=== PATIENT | female | born 1995 | race African-American/Black ===

== ENCOUNTER 2024-12-26 23:12 | Emergency (ER) | payer MEDICAID ==
[~2024-12-26] VITALS: Ht 170.2 cm; Wt 102.0 kg
[2024-12-26 23:19] VITALS: BP 151/91; PULSE 102; RESP 18; TEMP 36.8; O2SAT 99
[2024-12-26] MEDS: ACETAMINOPHEN 325MG TABLET PO ONE (23:54)
[2024-12-26] MEDS: METOCLOPRAMIDE HCL 5MG TABLET PO ONE (23:54)
[2024-12-27 00:08] LABS: HCG SCREEN NEGATIVE
[2024-12-28] MEDS ORDERED: ONDA4TAB50 MT (16:39)
[2024-12-28] MEDS ORDERED: ACET-2708 MT (16:39)
[2024-12-28] MEDS ORDERED: NAPR-679 MT (16:39)
== END 2024-12-27 01:16 | disposition left against medical advice (07) ==
LOC: ER 23:12
DX: S09.90XA Unspecified injury of head, initial encounter (principal); R03.0 Elevated blood-pressure reading, without diagnosis of hypertension; R51.9 Headache, unspecified; W01.0XXA Fall on same level from slipping, tripping and stumbling without subsequent striking against object, initial encounter; Y93.89 Activity, other specified; Y92.89 Other specified places as the place of occurrence of the external cause; Y99.8 Other external cause status
CPT/HCPCS: 99283; 84703; J8597

== ENCOUNTER 2024-12-28 14:44 | Emergency (ER) | payer MEDICAID ==
[~2024-12-28] VITALS: Ht 167.6 cm; Wt 115.0 kg
[2024-12-28 15:15] VITALS: O2SAT 100
[2024-12-28] MEDS: ACETAMINOPHEN 325MG TABLET PO ONE (16:32)
[2024-12-28] MEDS: ONDANSETRON 4MG ODT PO ONE (16:32)
[2024-12-28] MEDS: KETOROLAC 15MG/ML VIAL IM ONE (16:32)
[2024-12-28] MEDS ORDERED: NAPR-679 MT (16:39)
[2024-12-28] MEDS ORDERED: ONDA4TAB50 MT (16:39)
[2024-12-28] MEDS ORDERED: ACET-2708 MT (16:39)
[2024-12-28 17:07] VITALS: BP 144/98; PULSE 77; RESP 18; TEMP 37; O2SAT 100
== END 2024-12-28 17:08 | disposition home or self-care (01) ==
LOC: ER 14:44
DX: S09.90XA Unspecified injury of head, initial encounter (principal); I10 Essential (primary) hypertension; Z98.890 Other specified postprocedural states; X58.XXXA Exposure to other specified factors, initial encounter; Y93.89 Activity, other specified; Y92.89 Other specified places as the place of occurrence of the external cause; Y99.8 Other external cause status
CPT/HCPCS: 99285; 70450; 81025; 96372; J1885; Q0162

== ENCOUNTER 2025-01-21 13:28 | Emergency (ER) | payer MEDICAID ==
[~2025-01-21] VITALS: Ht 170.2 cm; Wt 104.0 kg
[~2025-01-21 13:28] MED LIST: ACET-2708 MT; NAPR-679 MT; ONDA4TAB50 MT
[2025-01-21 13:33] VITALS: O2SAT 100
[2025-01-21 14:01] VITALS: BP 145/103; PULSE 90; RESP 16; TEMP 36.8; O2SAT 99
[2025-01-22] MEDS ORDERED: IBUP-2029 MT (11:47)
== END 2025-01-21 16:35 | disposition left against medical advice (07) ==
LOC: ER 13:28
DX: M54.50 Low back pain, unspecified (principal); M25.551 Pain in right hip; Z53.21 Procedure and treatment not carried out due to patient leaving prior to being seen by health care provider

== ENCOUNTER 2025-01-22 00:16 | Emergency (ER) | payer MEDICAID ==
[~2025-01-22] VITALS: Ht 167.6 cm; Wt 142.1 kg
[2025-01-22 01:00] VITALS: O2SAT 99
[2025-01-22 01:03] VITALS: BP 165/107; PULSE 79; RESP 18; TEMP 36.7; O2SAT 99
[2025-01-22] MEDS ORDERED: IBUP-2029 MT (11:47)
== END 2025-01-22 02:42 | disposition left against medical advice (07) ==
LOC: ER 00:16
DX: M54.50 Low back pain, unspecified (principal); I10 Essential (primary) hypertension; Z53.21 Procedure and treatment not carried out due to patient leaving prior to being seen by health care provider

== ENCOUNTER 2025-01-22 08:09 | Emergency (ER) | payer MEDICAID ==
[~2025-01-22] VITALS: Ht 167.6 cm; Wt 100.0 kg
[2025-01-22 08:11] VITALS: O2SAT 99
[2025-01-22 08:52] LABS: BASOPHILS % 0.9 % (0.0-2.0); EOSINOPHILS % 1.6 % (0.0-5.0); HEMATOCRIT. 36.7 % (36.0-48.0); HEMOGLOBIN. 11.8 g/dL (12.0-16.0); LYMPHOCYTES % 36.5 % (20.0-50.0); MEAN PLATELET VOLUME 8.4 fl (7.4-10.4); MONOCYTES % 4.6 % (2.0-8.0); NEUTROPHILS % 56.4 % (40.0-76.0); PLATELET 149 x1000/uL (130-400); RED BLOOD CELL COUNT 4.90 mill/uL (4.2-5.4); RED CELL DISTRIBUTION WIDTH 15.6 % (11.6-14.6)
[2025-01-22] MEDS: SODIUM CHLORIDE 0.9% 1,000 ML IV ONE (08:54)
[2025-01-22 09:08] LABS: CREATININE 0.6 mg/dL (0.6-1.0)
[2025-01-22 09:09] LABS: UREA NITROGEN BLOOD 9 mg/dL (9-23)
[2025-01-22 09:10] LABS: ASPARTATE AMINOTRANSFERASE 113 IU/L (<34)
[2025-01-22 09:11] LABS: BILIRUBIN DIRECT 0.3 mg/dL (<=3.0); BILIRUBIN TOTAL 0.6 mg/dL (0.1-1.0); PROTEIN TOTAL 7.1 g/dL (6.0-8.3)
[2025-01-22 09:15] LABS: B-HCG QUANTITATIVE < 1 mIU/mL (<6)
[2025-01-22] MEDS: KETOROLAC 15MG/ML VIAL IV ONE (10:24)
[2025-01-22 11:17] LABS: CLARITY URINE CLEAR (CLEAR); COLOR URINE DARK YELLOW (YELLOW); GLUCOSE URINE NEGATIVE (NEGATIVE); KETONES URINE TRACE (NEGATIVE); LEUKOCYTE ESTERASE URINE NEGATIVE (NEGATIVE); NITRITE URINE NEGATIVE (NEGATIVE); OCCULT BLOOD URINE NEGATIVE (NEGATIVE); PH URINE 5.5 (4.5-8.0); PROTEIN URINE TRACE (NEGATIVE); SPECIFIC GRAVITY URINE 1.040 (1.005-1.030); UROBILINOGEN URINE 1.0 E.U./dL (0.2-1.0)
[2025-01-22 11:32] LABS: MUCUS URINE 1+ /lpf (< = 2+); SQUAMOUS EPITHELIAL CELL URINE 3+ /lpf (RARE/1+)
[2025-01-22 11:33] LABS: BACTERIA URINE 1+
[2025-01-22 11:34] LABS: RBC URINE NONE SEEN /hpf (0-2); WBC URINE 0-2 /hpf (0-2)
[2025-01-22] MEDS ORDERED: IBUP-2029 MT (11:47)
[2025-01-22 12:20] VITALS: BP 148/78; PULSE 70; RESP 15; TEMP 36.6; O2SAT 99
== END 2025-01-22 12:25 | disposition home or self-care (01) ==
LOC: ER 08:09
DX: R10.31 Right lower quadrant pain (principal); R10.2 Pelvic and perineal pain; I10 Essential (primary) hypertension; Z79.1 Long term (current) use of non-steroidal anti-inflammatories (NSAID); Z90.49 Acquired absence of other specified parts of digestive tract
CPT/HCPCS: 99285; 74176; 96374; 96361; 80076; 80048; 81003; 84702; 85025; 36415; J1885; J7030

== ENCOUNTER 2025-02-25 04:57 | Emergency (ER) | payer MEDICAID ==
[~2025-02-25] VITALS: Ht 167.6 cm; Wt 115.0 kg
[~2025-02-25 04:57] MED LIST changes: +IBUP-1455 MT
[2025-02-25 05:05] VITALS: O2SAT 99
[2025-02-25] MEDS ORDERED: TOPUD PO (05:52)
[2025-02-25 05:56] VITALS: BP 155/94; PULSE 74; RESP 16; TEMP 36.8; O2SAT 100
[2025-02-25 05:58] VITALS: TEMP 98.2
[2025-02-25] MEDS: ACETAMINOPHEN 325MG TABLET PO ONE (05:58)
== END 2025-02-25 06:03 | disposition home or self-care (01) ==
LOC: ER 04:57
DX: G44.311 Acute post-traumatic headache, intractable (principal); Z79.1 Long term (current) use of non-steroidal anti-inflammatories (NSAID); W10.9XXA Fall (on) (from) unspecified stairs and steps, initial encounter; Y93.89 Activity, other specified; Y92.89 Other specified places as the place of occurrence of the external cause; Y99.8 Other external cause status
CPT/HCPCS: 99283